=== PATIENT | male | born 1985 | race African-American/Black ===

== ENCOUNTER 2019-02-07 15:43 | Emergency (ER) | END 2019-02-07 15:50 | disposition left against medical advice (07) | LOC: FSED 15:43 | DX: Z53.21 Procedure and treatment not carried out due to patient leaving prior to being seen by health care provider (principal) ==

== ENCOUNTER 2019-02-08 06:19 | Emergency (ER) | payer SELFPAY ==
[~2019-02-08] VITALS: Ht 190.5 cm; Wt 111.1 kg
[2019-02-08] MEDS ORDERED: IBUPROFEN 600 MG TAB PO STA (06:51)
[2019-02-08] MEDS ORDERED: PENICILLIN G BENZATHINE LA 1.2 MU TBX IM STA (06:51)
== END 2019-02-08 09:36 | disposition home or self-care (01) ==
LOC: FSED 06:19
DX: J02.0 Streptococcal pharyngitis (principal)
CPT/HCPCS: 83518; 99283; J0561